=== PATIENT | male | born 2000 | race Caucasian/White ===

== ENCOUNTER 2022-05-09 15:52 | Emergency (ER) | payer BC ==
[~2022-05-09] VITALS: Ht 175.3 cm; Wt 69.9 kg
--- NOTE | 2022-05-09 18:08 | NUR ---
[facility] RESIDENT AT BEDSIDE FOR EVAL.
--- NOTE | 2022-05-09 18:15 | NUR ---
U/S TECH AT BEDSIDE FOR SCROTAL ULTRASOUND.
--- NOTE | 2022-05-09 18:45 | NUR ---
PT STILL UNABLE TO PROVIDE URINE SAMPLE.
[2022-05-09] MEDS ORDERED: AZITHROMYCIN 250 MG TABLET ONE ×2 (18:46→18:48)
[2022-05-09] MEDS ORDERED: GENTAMICIN 80 MG/2 ML VIAL ONE (18:48)
[2022-05-09] MEDS ORDERED: GENTAMICIN 80 MG/2 ML VIAL IM ONE (19:00)
[2022-05-09] MEDS ORDERED: AZITHROMYCIN 250 MG TABLET PO ONE (19:00)
--- NOTE | 2022-05-09 19:23 | NUR ---
URINE SAMPLE COLLECTED. SENT TO LAB.
[2022-05-09 19:58] LABS: BILIRUBIN,URINE NEGATIVE (NEGATIVE); COLOR,URINE YELLOW (YELLOW); LEUKOCYTE ESTERASE ,URINE MODERATE (NEGATIVE); NITRITE, URINE NEGATIVE (NEGATIVE); PROTEIN,URINE NEGATIVE (NEGATIVE); UGLUCOSE NEGATIVE (NEGATIVE); UROBILINOGEN,URINE 0.2 EU/dL (0.2)
[2022-05-09] MEDS ORDERED: IBUPROFEN 600 MG TABLET ONE (19:58)
[2022-05-09] MEDS ORDERED: IBUPROFEN 600 MG TABLET PO ONE (20:00)
[2022-05-09 20:14] LABS: BACTERIA,URINE 1+ /HPF (None Seen); SQUAMOUS EPITHELIAL CELL,UR Few /HPF (None Seen); WBC,URINE TOO NUMEROUS TO COUN /HPF (0-3)
[2022-05-09] MEDS ORDERED: ACETAMINOPHEN 325 MG TABLET PO ONE (20:30)
[2022-05-09] MEDS ORDERED: ACETAMINOPHEN 325 MG TABLET ONE (20:32)
[2022-05-09] MEDS ORDERED: CIPR-262 PO (20:38)
[2022-05-09] MEDS ORDERED: IBUP-1955 PO (20:39)
--- NOTE | 2022-05-09 20:52 | NUR ---
Patient discharged to home in stable condition. Written and verbal after care instructions given. Patient verbalizes understanding of instruction.
[2022-05-09 20:53] VITALS: BP 112/60
== END 2022-05-09 20:58 | disposition home or self-care (01) ==
LOC: ER 15:54
DX: N45.1 Epididymitis (principal); N39.0 Urinary tract infection, site not specified; Z88.0 Allergy status to penicillin; Z88.1 Allergy status to other antibiotic agents
CPT/HCPCS: 99284; 96372; 76870; 87086; 81001; 87491; 87591; J1580